=== PATIENT | female | born 1950 | race Caucasian/White ===

== ENCOUNTER 2024-05-31 01:03 | Emergency (ER) | payer OTHER, SELFPAY ==
[2024-05-31] VITALS (10 sets, daily range): BP systolic 146–226; BP diastolic 64–111; PULSE 72–75; TEMP 36.8; O2SAT 94–97; BMI 22.1
[2024-05-31] MEDS: SILVER NITRATE APPLICATOR STICK 1 APPLIC TOPICAL (01:25)
--- NOTE | 2024-05-31 01:32 | ED.EPISTAXI1 ---
HPI - Epistaxis General Chief Complaint: Epistaxis Stated Complaint: HIGH BLOOD PRESSURE, NOSEBLEED Time Seen by Provider: 05/31/24 01:09 Source: patient Mode of arrival: walk-in Limitations: no limitations History of Present Illness HPI Narrative: 73-year-old female presents to the emergency department for nosebleed. It started on the right side and a small amount of blood was coming out of the left side as well. She is not on any blood thinners. There is been no trauma. She was recently diagnosed with polycythemia vera and was scheduled to have phlebotomy performed later today. She has never had to go to the hospital or see an ear nose and throat doctor about nosebleeds. No injury. Less than 24 hours ago she had CBC performed and I was able to view this result on her phone. She has normal hemoglobin and normal platelet count. The patient is accompanied by her daughter who happens to be a physician and gives an excellent history. Related Data Home Medications ?Medication ?Instructions ?Recorded ?Confirmed aspirin 81 mg tablet,delayed 81 mg PO DAILY 05/31/24 05/31/24 release (Adult Aspirin Regimen) levothyroxine 75 mcg tablet mcg 05/31/24 Allergies Allergy/AdvReac Type Severity Reaction Status Date / Time moxifloxacin (From Avelox) Allergy Severe Anaphylaxis Verified 05/31/24 01:14 Penicillins Allergy Severe Swelling Verified 05/31/24 01:14 of Lip/Tongue/Throat Sulfa (Sulfonamide Allergy Intermediate Hives Verified 05/31/24 01:14 Antibiotics) Review of Systems ROS Narrative A ten point review of systems is negative except as noted above. [facility] Medical History (Updated 05/31/24 @ 03:46 by Lionel Martinez MD) FH: cholecystectomy ?Z83.79 - Family history of other diseases of the digestive system (ICD-10) Syncope, cardiogenic ?R55 - Syncope and collapse (ICD-10) Surgical History (Updated 05/31/24 @ 01:21 by Ivan Karimi) H/O: hysterectomy ?Z90.710 - Acquired absence of both cervix and uterus (ICD-10) Exam Narrative Exam Narrative: Nurses note and vital signs reviewed and patient is not hypoxic. General: The patient appears well and in no apparent distress. Patient is resting comfortably on cart. Skin: Warm, dry, no pallor noted. There is no rash noted. No petechia Head: Normocephalic, atraumatic Eye: Normal conjunctiva, no drainage Ears, Nose, Mouth, and Throat: oral mucosa is moist. Nasal clamp in place, no epistaxis. After removal of the clamp both sides were observed. There was minimal blood on the left side and dried blood on the right side. Cardiovascular: Regular Rate and Rhythm Respiratory: Patient is in no distress, no accessory muscle use, lungs are clear to auscultation, no wheezing, rales or rhonchi Back: non-tender GI: Soft and nontender Musculoskeletal: No joint swelling Neurological: A&O, normal speech Psychiatric: Cooperative Constitutional Vital Signs, click to edit/add: Last Vital Signs Temp 98.2 F 05/31/24 01:07 Pulse 75 05/31/24 02:49 Resp 28 H 05/31/24 02:49 BP 156/72 H 05/31/24 03:30 Pulse Ox 94 L 05/31/24 02:40 O2 Del Method Room Air 05/31/24 01:07 Course Vital Signs Vital signs: Vital Signs Temperature 98.2 F 05/31/24 01:07 Pulse Rate 72 05/31/24 01:07 Respiratory Rate 20 05/31/24 01:07 Blood Pressure 210/100 H 05/31/24 01:07 Pulse Oximetry 97 05/31/24 01:07 Oxygen Delivery Method Room Air 05/31/24 01:07 Temperature 98.2 F 05/31/24 01:07 Pulse Rate 75 05/31/24 02:49 Respiratory Rate 28 H 05/31/24 02:49 Blood Pressure 156/72 H 05/31/24 03:30 Pulse Oximetry 94 L 05/31/24 02:40 Oxygen Delivery Method Room Air 05/31/24 01:07 MDM - Epistaxis MDM Narrative Medical decision making narrative: The patient presented with a nosebleed. The following procedure was performed by me. Silver nitrate was applied to the right and left nares. This resulted in complete hemostasis and she had no further bleeding. As noted above she had a normal CBC yesterday including platelet count. She had persistent elevated blood pressure readings here in the emergency department. She was given 10 mg of IV hydralazine with excellent improvement. She will be discharged home and will be following up with her PCP for blood pressure rechecks and she is going to have phlebotomy later today because of her polycythemia vera. This will likely bring down her blood pressure as well. Treatment diagnosis and follow-up were discussed with the patient and her family. Differential Diagnosis Differential diagnosis: Likely anterior epistaxis and posterior epistaxis ECG Data Attestation: I personally reviewed and interpreted this ECG as follows: (EKG on my interpretation shows sinus rhythm with PACs. Rate of 73.) Critical Care Time Critical Care Time Critical Care Time: Yes Total Critical Care Time: 35 Attestation: Due to the high probability of sudden and clinically significant deterioration in the patient's condition he/she required the highest level of my preparedness to intervene urgently I provided critical care time including documentation time, medication orders and management, reevaluation, vital sign assessment, ordering and reviewing of lab tests, ordering and reviewing of x-ray studies, and admission orders. Aggregate critical care time is 35 minutes including only time during which I was engaged in work directly related to his/her care and did not include time spent treating other patients simultaneously. Discharge Plan Discharge Chief Complaint: Epistaxis Clinical Impression: Epistaxis, Hypertension Patient Disposition: Home, Self-Care Time of Disposition Decision: 03:45 Condition: Good Mode of Transportation: Private Vehicle Prescriptions / Home Meds: No Action levothyroxine 75 mcg tablet aspirin [Adult Aspirin Regimen] 81 mg tablet,delayed release (DR/EC) 81 mg PO DAILY Print Language: Greek Instructions: Nosebleed (ED) Referrals: JAZ ACE [Primary Care Provider] - 1 week
--- NOTE | 2024-05-31 01:51 | PC.NURSE ---
Patient has been having nosebleed for several hours along with hypertension. She has no history of hypertension and is not on any blood pressure medication at this time. She states that her blood pressure usually runs low. She atttempted to control bleeding at home and was not successful. Her daughter is a physician, states the patient was given a new diagnoses today and believes this may be related to stress and anxiety.
[2024-05-31] MEDS: HYDRALAZINE HCL 20 MG/ML VIAL 10 MG IVP (02:59)
--- NOTE | 2024-05-31 04:11 | ECG_ITS ---
[facility] Test Date: 2024-05-31 Pat Name: IVETTE TUTTLE Department: Room: - Gender: Female [employer]ating Machine Operator: : [id number] Requested By: [id number] Order Number: [id number] Reading MD: BERNICE ANTONIO Measurements Intervals [place] Rate: 73 P: 55 IA: 154 QRS: -50 QRSD: 88 T: 38 QT: 398 QTc: 424 Interpretive Statements 1100 Sinus rhythm 1474 with frequent supraventricular premature complexes 2630 Left anterior fascicular block 9150 abnormal ECG Compared to ECG 06/09/2020 21:06:58 Left anterior fascicular block now present Left-axis deviation no longer present Electronically Signed On 05-31-2024 16:59:29 EST by BERNICE ANTONIO
== END 2024-05-31 03:56 | disposition home or self-care (01) ==
PROVIDERS: Emergency Provider Emergency Medicine; PCP Family Medicine
DX: R04.0 Epistaxis (principal); I10 Essential (primary) hypertension; D45 Polycythemia vera; Z90.710 Acquired absence of both cervix and uterus
CPT/HCPCS: 93005; 96374; 99284; J0360